=== PATIENT | male | born 1955 | race Caucasian/White ===

== ENCOUNTER 2017-03-05 22:07 | Emergency (ER) | payer OTHER ==
[2017-03-05 22:18] VITALS: TEMP 98.2
--- NOTE | 2017-03-05 22:42 | ED ---
General Adult HPI - General Chief complaint: Recheck/Abnormal Lab/Rx Stated complaint: B/P Issues Time Seen by Provider: 03/05/17 22:15 Source: patient, family, RN notes reviewed Mode of arrival: ambulatory Limitations: no limitations - History of Present Illness Initial comments: This is a 62-year-old male who presents to the emergency department because his blood pressure was elevated initially at 162 systolic and then it went up to 180 -10 minutes later. Patient states he was slightly lightheaded so he decided to come to the emergency department. Patient does not take any medication for his blood pressures. Because he takes 20-30 [id number] organic medications. Patient states he stopped all of them earlier today on the advice of his chiropractor. Patient denies any chest pain difficulty breathing shortness of breath per patient denies any headache patient denies numbness weakness. Patient denies any palpitations. Patient denies nausea vomiting diarrhea per patient denies abdominal pain. Patient states been under quite a bit of stress at home and at work and that could contribute to some of his elevated blood pressure. - Related Data Home Medications Medication Instructions Recorded Confirmed No Known Home Medications [No 03/05/17 03/05/17 Known Home Medications] Allergies Allergy/AdvReac Type Severity Reaction Status Date / Time No Known Allergies Allergy Verified 03/05/17 22:18 Review of Systems ROS Statement: Those systems with pertinent positive or pertinent negative responses have been documented in the HPI. ROS Other: All systems not noted in ROS Statement are negative. Past Medical History Past Medical History: No Reported History History of Any Multi-Drug Resistant Organisms: None Reported Past Surgical History: No Surgical Hx Reported Past Psychological History: No Psychological Hx Reported Smoking Status: Never smoker Past Alcohol Use History: Rare Past Drug Use History: None Reported General Exam - General Exam Comments Initial Comments: GENERAL: Patient is well-developed and well-nourished. Patient is nontoxic and well- hydrated and is in no acute distress. ENT: Neck is soft and supple. No significant lymphadenopathy is noted. Oropharynx is clear. Moist mucous membranes. Neck has full range of motion without eliciting any pain. EYES: The sclera were anicteric and conjunctiva were pink and moist. Extraocular movements were intact and pupils were equal round and reactive to light. Eyelids were unremarkable. PULMONARY: Unlabored respirations. Good breath sounds bilaterally. No audible rales rhonchi or wheezing was noted. CARDIOVASCULAR: There is a regular rate and rhythm without any murmurs gallops or rubs. ABDOMEN: Soft and nontender with normal bowel sounds. No palpable organomegaly was noted. There is no palpable pulsatile mass. SKIN: Skin is clear with no lesions or rashes and otherwise unremarkable. NEUROLOGIC: Patient is alert and oriented x3. Cranial nerves II through XII are grossly intact. Motor and sensory are also intact. Normal speech, volume and content. Symmetrical smile. MUSCULOSKELETAL: Normal extremities with adequate strength and full range of motion. No lower extremity swelling or edema. No calf tenderness. LYMPHATICS: No significant lymphadenopathy is noted PSYCHIATRIC: Normal psychiatric evaluation. Limitations: no limitations Course Vital Signs 03/05/17 22:15 Temperature 98.2 F Pulse Rate 105 H Respiratory 20 Rate Blood Pressure 137/91 O2 Sat by Pulse 99 Oximetry Medical Decision Making - Medical Decision Making EKG shows normal sinus rhythm at 90 bpm MA interval 146 dresses 98 QT interval 344 Q-T C is 439 per patient's EKG shows no ST segment elevation or depression or T wave abnormalities are noted. Patient was asymptomatic throughout his ED course. Patient's blood pressure was never above 150 systolic. - Lab Data Result diagrams: 03/05/17 23:15 03/05/17 23:15 Lab Results 03/05/17 03/05/17 Range/Units 23:15 23:15 WBC 5.7 (3.8-10.6) k/uL RBC 4.98 (4.30-5.90) m/uL Hgb 15.2 (13.0-17.5) gm/dL Hct 43.0 (39.0-53.0) % MCV 86.3 (80.0-100.0) fL MCH 30.4 (25.0-35.0) pg MCHC 35.3 (31.0-37.0) g/dL RDW 12.3 (11.5-15.5) % Plt Count 260 (150-450) k/uL Neutrophils % 65 % Lymphocytes % 22 % Monocytes % 8 % Eosinophils % 2 % Basophils % 1 % Neutrophils # 3.7 (1.3-7.7) k/uL Lymphocytes # 1.3 (1.0-4.8) k/uL Monocytes # 0.4 (0-1.0) k/uL Eosinophils # 0.1 (0-0.7) k/uL Basophils # 0.0 (0-0.2) k/uL Sodium 136 L (137-145) mmol/L Potassium 4.1 (3.5-5.1) mmol/L Chloride 100 (98-107) mmol/L Carbon Dioxide 26 (22-30) mmol/L Anion Gap 10 mmol/L BUN 15 (9-20) mg/dL Creatinine 0.60 L (0.66-1.25) mg/dL Est GFR (MDRD) Af Amer >60 (>60 ml/min/1.73 sqM) Est GFR (MDRD) Non-Af >60 (>60 ml/min/1.73 sqM) Glucose 274 H (74-99) mg/dL Calcium 9.5 (8.4-10.2) mg/dL Magnesium 1.7 (1.6-2.3) mg/dL Total Bilirubin 0.5 (0.2-1.3) mg/dL AST 23 (17-59) U/L ALT 42 (21-72) U/L Alkaline Phosphatase 55 (38-126) U/L Total Protein 6.5 (6.3-8.2) g/dL Albumin 3.9 (3.5-5.0) g/dL Disposition Clinical Impression: Hyperglycemia Disposition: HOME SELF-CARE Condition: Good Instructions: Hypertension (ED), Type 2 Diabetes in Adults (ED) Additional Instructions: Patient needs to follow up with the primary medical care doctor switched to be appropriately worked up for hypertension and diabetes. Patient is aware of this. Referrals: None,Stated [Primary Care Provider] - 1-2 days
[2017-03-05 23:29] LABS: Basophils % (A) 1 %; CH 31.2; CHCM 36.3; Eosinophils # (A) 0.1 k/uL (0-0.7); Eosinophils % (A) 2 %; HDW 2.73; HGB 15.2 gm/dL (13.0-17.5); Luc # (Auto) 0.12; Luc % (Auto) 2; Lymphocytes # (A) 1.3 k/uL (1.0-4.8); Lymphocytes % (A) 22 %; MCH 30.4 pg (25.0-35.0); MCHC 35.3 g/dL (31.0-37.0); MCV 86.3 fL (80.0-100.0); Mean Platelet Volume 7.3; Monocytes # (A) 0.4 k/uL (0-1.0); Monocytes % (A) 8 %; Neutrophils # (A) 3.7 k/uL (1.3-7.7); Neutrophils % (A) 65 %; RBC 4.98 m/uL (4.30-5.90); RDW 12.3 % (11.5-15.5); WBC 5.7 k/uL (3.8-10.6); WBC (Perox) 5.36
[2017-03-05 23:44] LABS: ALT 42 U/L (21-72); AST 23 U/L (17-59); Alkaline Phosphatase 55 U/L (38-126); Anion Gap 10 mmol/L; Blood Urea Nitrogen 15 mg/dL (9-20); Calcium 9.5 mg/dL (8.4-10.2); Carbon Dioxide 26 mmol/L (22-30); Chloride 100 mmol/L (98-107); Glucose 274 mg/dL (74-99); Magnesium 1.7 mg/dL (1.6-2.3); Non-African American GFR(MDRD) >60 (>60 ml/min/1.73 sqM); Potassium 4.1 mmol/L (3.5-5.1); Sodium 136 mmol/L (137-145); Total Bilirubin 0.5 mg/dL (0.2-1.3); Total Protein 6.5 g/dL (6.3-8.2)
[2017-03-06 00:06] VITALS: BP 155/101; PULSE 101; RESP 18
== END 2017-03-06 00:05 | disposition home or self-care (01) ==
LOC: EC 22:07
DX: R73.9 Hyperglycemia, unspecified (principal); R03.0 Elevated blood-pressure reading, without diagnosis of hypertension
CPT/HCPCS: 36415; 80053; 83735; 85025; 93005; 99283

== ENCOUNTER 2017-12-30 20:30 | Observation (INO) | payer OTHER ==
[2017-12-30] MEDS ORDERED: PANTOPRAZOLE 40 MG/10 ML VIAL IVP STA (21:01)
[2017-12-30] MEDS ORDERED: SODIUM CHLORIDE 0.9% 1,000 ML IV ONE (21:03)
[2017-12-30 21:17] LABS: Basophils % (A) 0 %; Eosinophils # (A) 0.1 k/uL (0-0.7); Eosinophils % (A) 1 %; HCT 40.9 % (39.0-53.0); HGB 13.7 gm/dL (13.0-17.5); Lymphocytes # (A) 0.9 k/uL (1.0-4.8); Lymphocytes % (A) 6 %; MCH 29.4 pg (25.0-35.0); MCHC 33.4 g/dL (31.0-37.0); MCV 87.9 fL (80.0-100.0); Mean Platelet Volume 7.2; Monocytes # (A) 0.8 k/uL (0-1.0); Monocytes % (A) 5 %; Neutrophils # (A) 14.7 k/uL (1.3-7.7); Neutrophils % (A) 89 %; Platelet Count 381 k/uL (150-450); RBC 4.65 m/uL (4.30-5.90); RDW 12.3 % (11.5-15.5); WBC 16.5 k/uL (3.8-10.6)
[2017-12-30 21:22] LABS: ALT 30 U/L (21-72); AST 21 U/L (17-59); Albumin 3.7 g/dL (3.5-5.0); Alkaline Phosphatase 55 U/L (38-126); Anion Gap 17 mmol/L; Blood Urea Nitrogen 31 mg/dL (9-20); Calcium 10.2 mg/dL (8.4-10.2); Carbon Dioxide 24 mmol/L (22-30); Chloride 92 mmol/L (98-107); Glucose 344 mg/dL (74-99); Potassium 4.6 mmol/L (3.5-5.1); Sodium 133 mmol/L (137-145); Total Bilirubin 0.5 mg/dL (0.2-1.3)
[2017-12-30 21:30] LABS: Creatine Kinase 192 U/L (55-170)
--- NOTE | 2017-12-30 21:36 | ED ---
GI Bleed HPI - General Chief complaint: GI Bleed Stated complaint: Rectal Bleeding Time Seen by Provider: 12/30/17 20:48 Source: patient Mode of arrival: wheelchair Limitations: no limitations - History of Present Illness Initial comments: This 62 years old male few days ago at that point he came in with the infection in his foot and I noticed that his sugar was too high up put him in the hospital his sugar was greater than 400 today he returns to the ER with this blood pressure being less than 70 systolic he was quite diaphoretic and he stated he had several bloody stools today during his stay in the hospital this time he was put on some antihypertensive agents as well as as well as some antibiotics for quite diaphoretic quite weak on arrival. He denies any headaches no neck stiffness no chest pain or shortness of breath no abdominal pain had bloody stool had a 60 from today he still nauseous no symptoms of TIA or CVA - Related Data Home Medications Medication Instructions Recorded Confirmed Aspirin 81 mg PO DAILY 12/25/17 12/30/17 Ascorbic Acid [Vitamin C] 6,000 mg PO DAILY 12/30/17 12/30/17 Fish Oil/Dha/Epa [Fish Oil 1,200 1 cap PO BID 12/30/17 12/30/17 mg Fish Oil] Lisinopril-Hctz 10-12.5 mg 1 tab PO BID 12/30/17 12/30/17 [Zestoretic 10-12.5] Loperamide [Imodium] 2 mg PO QID PRN 12/30/17 12/30/17 Saw [place] 450 Mg 900 mg PO BID 12/30/17 12/30/17 Previous Rx's Medication Instructions Recorded Amoxic-Pot Clav 875-125Mg 1 tab PO Q12HR #20 tablet 12/29/17 [Augmentin 875-125] Atorvastatin Calcium [Lipitor] 20 mg PO DAILY #30 tab 12/29/17 metFORMIN HCL [Glucophage] 1,000 mg PO AC-BID #60 tab 12/29/17 Allergies Allergy/AdvReac Type Severity Reaction Status Date / Time No Known Allergies Allergy Verified 12/30/17 21:37 Review of Systems ROS Statement: Those systems with pertinent positive or pertinent negative responses have been documented in the HPI. ROS Other: All systems not noted in ROS Statement are negative. Past Medical History Past Medical History: No Reported History, Diabetes Mellitus, Hypertension Additional Past Medical History / Comment(s): 2017 presented in ER with high blood pressure, no medications needed History of Any Multi-Drug Resistant Organisms: None Reported Past Surgical History: No Surgical Hx Reported Past Psychological History: No Psychological Hx Reported Smoking Status: Never smoker Past Alcohol Use History: Rare Past Drug Use History: None Reported - Past Family History Mother Family Medical History: Cancer, Diabetes Mellitus, Hypertension, Liver Disease, Renal Disease Additional Family Medical History / Comment(s): breast cancer history Father Family Medical History: Cancer, Chest Pain / Angina, Hypertension, Myocardial Infarction (SC), Osteoarthritis (OA) General Exam - General Exam Comments Initial Comments: General: The patient is awake and alert, in moderate distress looks quite pale noticed some diaphoresis as well but GCS is 15 Skin: Skin is warm and dry and no rashes or lesions are noted. Eye: Pupils are equal, round and reactive to light, extra-ocular movements are intact; there is normal conjunctiva bilaterally. Ears, nose, mouth and throat: There are moist mucous membranes and no oral lesions. Neck: The neck is supple, there is no tenderness or JVD. Cardiovascular: There is a regular rate and rhythm. No murmur, rub or gallop is appreciated. Respiratory: To auscultation bilateral, or exchanges decrease in the right base Gastrointestinal: Soft, non-distended, non-tender abdomen without masses or organomegaly noted. There is no rebound or guarding present. Bowel sounds are unremarkable. Rectal exam showed hemorrhoids and now dark red blood per rectal exam Back: There is no tenderness to palpation in the midline. There is no obvious deformity. Musculoskeletal: Normal ROM, no tenderness, There is no pedal edema. There is no calf tenderness or swelling. No cords were appreciated. Neurological: CN II-XII intact, Cranial nerves III through XII are intact. There are no obvious motor or sensory deficits. Coordination appears grossly intact. Speech is normal. Psychiatric: Cooperative, appropriate mood & affect, normal judgment. Limitations: no limitations Course Vital Signs 12/30/17 12/30/17 12/30/17 20:34 21:05 21:29 Temperature 97.6 F Pulse Rate 105 H 99 97 Respiratory 20 17 18 Rate Blood Pressure 99/63 97/57 O2 Sat by Pulse 100 99 99 Oximetry 12/30/17 12/30/17 22:15 22:47 Temperature Pulse Rate 98 100 Respiratory 18 18 Rate Blood Pressure 87/61 107/66 O2 Sat by Pulse 98 99 Oximetry EKG is sinus tachycardia ventricular rate is 101 NM interval is 142 QRS duration is 94 QT/QTc is 342/443 review of this EKG does not reveal any ST elevation or ST depression noticed some incomplete right bundle branch block Patient be admitted to Dr. Sweeney service, labs were reviewed and discussed with the patient white count is 16.5 lactate is 2.1 CMP is negative troponin is negative occult blood is positive and lactate is 2.5 - Reevaluation(s) Reevaluation #1: Patient presented with the GI bleed his hemoglobin is quite stable other worrisome things or that his blood pressure was quite low triage nurse told me the blood pressure was less than 70 when he presented to the ER though it bounced back with the IV fluids and he is not on any blood thinners as such and also I don't have any C. difficile back into the worrisome thing is his white count is 17 with a left shift I would like to put him back in the hospital for serial hemoglobin check (1) chronic antibiotic we did bleed we did arrange blood cultures I'm suspecting early sepsis. He be admitted to Dr. Pederson's service 12/30/17 22:23 12/30/17 22:55 Blood pressure dropped below 100 systolic in spite of 1 L of fluids we will start him on empiric antibiotics and maintenance fluids he be admitted, patient agrees with that plan Medical Decision Making - Lab Data Result diagrams: 12/30/17 20:57 12/30/17 20:57 Lab Results 12/30/17 12/30/17 12/30/17 Range/Units 20:57 20:57 20:57 WBC 16.5 H (3.8-10.6) k/uL RBC 4.65 (4.30-5.90) m/uL Hgb 13.7 (13.0-17.5) gm/dL Hct 40.9 (39.0-53.0) % MCV 87.9 (80.0-100.0) fL MCH 29.4 (25.0-35.0) pg MCHC 33.4 (31.0-37.0) g/dL RDW 12.3 (11.5-15.5) % Plt Count 381 (150-450) k/uL Neutrophils % 89 % Lymphocytes % 6 % Monocytes % 5 % Eosinophils % 1 % Basophils % 0 % Neutrophils # 14.7 H (1.3-7.7) k/uL Lymphocytes # 0.9 L (1.0-4.8) k/uL Monocytes # 0.8 (0-1.0) k/uL Eosinophils # 0.1 (0-0.7) k/uL Basophils # 0.0 (0-0.2) k/uL APTT (22.0-30.0) sec Sodium 133 L (137-145) mmol/L Potassium 4.6 (3.5-5.1) mmol/L Chloride 92 L (98-107) mmol/L Carbon Dioxide 24 (22-30) mmol/L Anion Gap 17 mmol/L BUN 31 H (9-20) mg/dL Creatinine 1.20 (0.66-1.25) mg/dL Est GFR (MDRD) Af Amer >60 (>60 ml/min/1.73 sqM) Est GFR (MDRD) Non-Af >60 (>60 ml/min/1.73 sqM) Glucose 344 H (74-99) mg/dL Plasma Lactic Acid Abel (0.7-2.0) mmol/L Calcium 10.2 (8.4-10.2) mg/dL Total Bilirubin 0.5 (0.2-1.3) mg/dL AST 21 (17-59) U/L ALT 30 (21-72) U/L Alkaline Phosphatase 55 (38-126) U/L Total Creatine Kinase 192 H (55-170) U/L CK-MB (CK-2) 3.8 H* (0.0-2.4) ng/mL CK-MB (CK-2) Rel Index 2.0 Troponin I <0.012 (0.000-0.034) ng/mL Total Protein 6.0 L (6.3-8.2) g/dL Albumin 3.7 (3.5-5.0) g/dL Stool Occult Blood (Negative) C. difficile (EIA) Intrp (Negative) Blood Type Blood Type Confirm Blood Type Recheck Antibody Screen Spec Expiration Date 12/30/17 12/30/17 12/30/17 Range/Units 20:57 20:57 20:57 WBC (3.8-10.6) k/uL RBC (4.30-5.90) m/uL Hgb (13.0-17.5) gm/dL Hct (39.0-53.0) % MCV (80.0-100.0) fL MCH (25.0-35.0) pg MCHC (31.0-37.0) g/dL RDW (11.5-15.5) % Plt Count (150-450) k/uL Neutrophils % % Lymphocytes % % Monocytes % % Eosinophils % % Basophils % % Neutrophils # (1.3-7.7) k/uL Lymphocytes # (1.0-4.8) k/uL Monocytes # (0-1.0) k/uL Eosinophils # (0-0.7) k/uL Basophils # (0-0.2) k/uL APTT 21.9 L (22.0-30.0) sec Sodium (137-145) mmol/L Potassium (3.5-5.1) mmol/L Chloride (98-107) mmol/L Carbon Dioxide (22-30) mmol/L Anion Gap mmol/L BUN (9-20) mg/dL Creatinine (0.66-1.25) mg/dL Est GFR (MDRD) Af Amer (>60 ml/min/1.73 sqM) Est GFR (MDRD) Non-Af (>60 ml/min/1.73 sqM) Glucose (74-99) mg/dL Plasma Lactic Acid Abel (0.7-2.0) mmol/L Calcium (8.4-10.2) mg/dL Total Bilirubin (0.2-1.3) mg/dL AST (17-59) U/L ALT (21-72) U/L Alkaline Phosphatase (38-126) U/L Total Creatine Kinase (55-170) U/L CK-MB (CK-2) (0.0-2.4) ng/mL CK-MB (CK-2) Rel Index Troponin I (0.000-0.034) ng/mL Total Protein (6.3-8.2) g/dL Albumin (3.5-5.0) g/dL Stool Occult Blood Positive (Negative) C. difficile (EIA) Intrp (Negative) Blood Type A Positive Blood Type Confirm Blood Type Recheck CABO Indicated Antibody Screen NEGATIVE Spec Expiration Date 01/02/2018 - 235612/30/17 12/30/17 12/30/17 Range/Units 21:08 21:08 21:49 WBC (3.8-10.6) k/uL RBC (4.30-5.90) m/uL Hgb (13.0-17.5) gm/dL Hct (39.0-53.0) % MCV (80.0-100.0) fL MCH (25.0-35.0) pg MCHC (31.0-37.0) g/dL RDW (11.5-15.5) % Plt Count (150-450) k/uL Neutrophils % % Lymphocytes % % Monocytes % % Eosinophils % % Basophils % % Neutrophils # (1.3-7.7) k/uL Lymphocytes # (1.0-4.8) k/uL Monocytes # (0-1.0) k/uL Eosinophils # (0-0.7) k/uL Basophils # (0-0.2) k/uL APTT (22.0-30.0) sec Sodium (137-145) mmol/L Potassium (3.5-5.1) mmol/L Chloride (98-107) mmol/L Carbon Dioxide (22-30) mmol/L Anion Gap mmol/L BUN (9-20) mg/dL Creatinine (0.66-1.25) mg/dL Est GFR (MDRD) Af Amer (>60 ml/min/1.73 sqM) Est GFR (MDRD) Non-Af (>60 ml/min/1.73 sqM) Glucose (74-99) mg/dL Plasma Lactic Acid Abel 2.1 H* (0.7-2.0) mmol/L Calcium (8.4-10.2) mg/dL Total Bilirubin (0.2-1.3) mg/dL AST (17-59) U/L ALT (21-72) U/L Alkaline Phosphatase (38-126) U/L Total Creatine Kinase (55-170) U/L CK-MB (CK-2) (0.0-2.4) ng/mL CK-MB (CK-2) Rel Index Troponin I (0.000-0.034) ng/mL Total Protein (6.3-8.2) g/dL Albumin (3.5-5.0) g/dL Stool Occult Blood (Negative) C. difficile (EIA) Intrp Negative (Negative) Blood Type Blood Type Confirm A Positive Blood Type Recheck Antibody Screen Spec Expiration Date Disposition Clinical Impression: Hypotension, GI bleed Disposition: ADMITTED IP TO THIS [facility] Condition: Good Referrals: None,Stated [Primary Care Provider] - 1-2 days
[2017-12-30 21:43] LABS: Troponin I <0.012 ng/mL (0.000-0.034)
[2017-12-30 21:48] LABS: Creatine Kinase MB 3.8 ng/mL (0.0-2.4)
[2017-12-30] MEDS: SODIUM CHLORIDE 0.9% 1,000 ML IV SCH (22:23)
[2017-12-30] MEDS ORDERED: NALOXONE 0.4 MG/ML 1 ML VIAL IV PRN (22:56)
[2017-12-30] MEDS ORDERED: LOPERAMIDE 2 MG CAP PO PRN (23:14)
[2017-12-30] MEDS ORDERED: PIPERACILLIN-TAZOBACTAM 3.375 GM in DEXTROSE/WATER 1 50ML.BAG IVPB STA (23:15)
[2017-12-31 01:00] VITALS: BMI 24.7
[2017-12-31 06:20] LABS: Glucose,Whole Blood 235 mg/dL (75-99)
[2017-12-31 06:59] LABS: Basophils % (A) 0 %; Eosinophils # (A) 0.1 k/uL (0-0.7); Eosinophils % (A) 1 %; HCT 34.1 % (39.0-53.0); Lymphocytes # (A) 1.3 k/uL (1.0-4.8); Lymphocytes % (A) 18 %; MCH 29.6 pg (25.0-35.0); MCHC 32.4 g/dL (31.0-37.0); MCV 91.4 fL (80.0-100.0); Mean Platelet Volume 7.2; Monocytes # (A) 0.6 k/uL (0-1.0); Monocytes % (A) 8 %; Neutrophils # (A) 4.9 k/uL (1.3-7.7); Neutrophils % (A) 71 %; Platelet Count 274 k/uL (150-450); RBC 3.73 m/uL (4.30-5.90); RDW 12.3 % (11.5-15.5); WBC 6.9 k/uL (3.8-10.6)
[2017-12-31 07:31] LABS: ALT 31 U/L (21-72); AST 16 U/L (17-59); Alkaline Phosphatase 47 U/L (38-126); Anion Gap 8 mmol/L; Blood Urea Nitrogen 32 mg/dL (9-20); Calcium 9.3 mg/dL (8.4-10.2); Carbon Dioxide 29 mmol/L (22-30); Chloride 98 mmol/L (98-107); Glucose 236 mg/dL (74-99); Potassium 4.3 mmol/L (3.5-5.1); Sodium 135 mmol/L (137-145); Total Bilirubin 0.7 mg/dL (0.2-1.3); Total Protein 5.2 g/dL (6.3-8.2)
[2017-12-31] MEDS ORDERED: PIPERACILLIN-TAZOBACTAM 3.375 GM in DEXTROSE/WATER 1 50ML.BAG IVPB SCH (08:00)
[2017-12-31] MEDS ORDERED: SAW PALMETTO PO SCH (09:00)
[2017-12-31] MEDS: SODIUM CHLORIDE 0.9% 1,000 ML IV SCH ×2 (09:09→18:38)
--- NOTE | 2017-12-31 10:35 | CONS ---
CONSULTATION DATE OF SERVICE: 12/31/2017 REASON FOR CONSULTATION: Bloody diarrhea. HISTORY OF PRESENT ILLNESS: The patient is a 62-year-old pleasant white male who was discharged from the hospital 2 days ago, and the first time was admitted with new onset diabetes and diabetic foot infection. He was sent home on Augmentin. While he was in the hospital, he started having diarrhea with bowel movements anywhere from 4 to 5 a day which are loose in consistency. The diarrhea continued to persist. He started Imodium on an outpatient basis, but yesterday afternoon around 12 noon, he started noticing blood in the stool. He had at least 10 episodes of loose watery bowel movements with dark blood and as it continued to persist, became very concerned, came into the emergency room and subsequently admitted to the hospital for further evaluation. Since being in the hospital, he had 3 bowel movements; one of it had blood, the other two had no more bleeding. He denies any abdominal pain, reports no fever, chills, night sweats. Never had these symptoms in the past. PAST MEDICAL HISTORY: Newly diagnosed diabetes mellitus, diabetic foot infection, hypertension. MEDICATIONS: At home, aspirin, vitamin C, fish oil, Zestoretic, Imodium, saw [place]met[place], Augmentin, Lipitor, and Glucophage. ALLERGIES: None. PAST SURGICAL HISTORY: None. SOCIAL HISTORY: No smoking. No alcohol use. FAMILY HISTORY: Mother has diabetes, hypertension. Father has coronary artery disease and hypertension. REVIEW OF SYSTEMS: CARDIOPULMONARY: No chest pain, shortness of breath. GENITOURINARY: No dysuria, hematuria. MUSCULOSKELETAL: Unremarkable. SKIN: Unremarkable. PSYCHIATRIC: Unremarkable. NEUROLOGY: Unremarkable. ENT: Vision unremarkable. CONSTITUTIONAL: No recent weight loss. No fever, chills, night sweats. ENDOCRINE: New onset diabetes. HEMATOLOGY: Unremarkable. PHYSICAL EXAMINATION: He appears comfortable, in no apparent distress. VITAL SIGNS: Stable. Blood pressure is 103/64, pulse rate 107, temperature 97.3. HEENT EXAMINATION: Unremarkable, conjunctivae are pink, sclerae nonicteric. Oral cavity no lesions. NECK: No JVD or lymph node enlargement. Chest was clear to auscultation. HEART: Regular rate and rhythm. ABDOMEN: Soft, nontender, nondistended. Bowel sounds are positive. No organomegaly. EXTREMITIES: No pedal edema. SKIN: No rashes. NEURO: Alert and oriented x3. No focal deficits. LABS: At the time of admission to the hospital, WBC 6.9, hemoglobin 11, platelets 12.3, hemoglobin yesterday was 13.7. BUN is 32, creatinine 1.20, sodium 135, potassium 4.3, chloride 98, CO2 is 29. AST, ALT, bilirubin and alk phos are within normal limits. IMPRESSION: This is a patient who was recently diagnosed with diabetes and diabetic foot infection about a week ago and patient was admitted to hospital and was sent home on Augmentin and while in the hospital, started having some diarrhea, but was having about 3 to 4 loose bowel movements daily. Following discharge from the hospital, he continued to have persistent diarrhea and took Imodium on an outpatient basis, but then he noticed dark colored blood in the stool that started yesterday. He had almost 10 bowel movements yesterday, came in to the emergency room and subsequently admitted to the hospital for acute bloody diarrhea. Stool for C. diff toxin was reported as negative. This morning he is feeling better, had 2 loose bowel movements, but no blood in the stool. No prior history of colonoscopy in the past. Most likely we are dealing with infectious colitis, presently with diarrhea secondary due to Augmentin. RECOMMENDATIONS: 1. Obtain stool studies. 2. Start him on clear liquid diet. 3. Hold off antibiotics if possible, since the diabetic foot ulcer has completely healed. 4. We will consider endoscopic intervention only if he continues to have persistent bloody diarrhea. Thank you for this consultation. Will follow the patient closely during his hospital stay. CHEVY / MARTHA: [id number] /
[2017-12-31 10:36] LABS: Glucose,Whole Blood 219 mg/dL (75-99)
[2017-12-31] MEDS: metFORMIN 500 MG TAB PO SCH ×2 (10:52→17:58)
[2017-12-31] MEDS: ASCORBIC ACID 500 MG TAB PO SCH (10:53)
[2017-12-31] MEDS: ATORVASTATIN 20 MG TAB PO SCH (10:53)
[2017-12-31] MEDS: ASPIRIN 81 MG PO SCH (10:53)
[2017-12-31 16:41] LABS: Glucose,Whole Blood 206 mg/dL (75-99)
[2017-12-31] MEDS: DHA PO SCH ×2 (17:59→20:37)
[2017-12-31] MEDS: FISH OIL PO SCH ×2 (17:59→20:37)
[2017-12-31] MEDS: EPA PO SCH ×2 (17:59→20:37)
--- NOTE | 2017-12-31 18:38 | HP ---
HISTORY AND PHYSICAL DATE OF ADMISSION: 12/31/2017. PRESENTING COMPLAINT: Diarrhea and blood in the stool. HISTORY OF PRESENTING COMPLAINT: This is a pleasant 62-year-old patient who was in the hospital from to 12/26/2017 and discharged 12/29/2017. The patient then was initially admitted with acute left foot wound secondary to diabetes with a new diagnosis of diabetes mellitus type 2 and hypertension, hyperlipidemia. The patient was discharged on Augmentin, seen by Dr. Encinas and also was put on metformin. The patient did well, but the patient said at home he said at home he noticed that suddenly he had started developing diarrhea 4 or 5 times. There was no abdominal pain. No nausea, vomiting. No fever. Also started noticing blood in the same; hence, he was admitted. REVIEW OF SYSTEMS: CONSTITUTIONAL: Tired. HEENT: None. RESPIRATORY: None. CARDIOVASCULAR: None. GASTROINTESTINAL: None. GENITOURINARY: None. DERMATOLOGICAL: The wounds of the left foot. Toe are actually healed rather well. LYMPHATICS: None. PSYCHIATRY: None. NEUROLOGICAL: Numbness, tingling in the feet. PAST MEDICAL HISTORY: New diagnosis of diabetes mellitus type 2, hypertension, hyperlipidemia, peripheral neuropathy. PAST SURGICAL HISTORY: None. SOCIAL HISTORY: No smoking. Alcohol rarely. Denies any recreational drugs. Lives with a friend called Anum who works. 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 FAMILY HISTORY: Diabetes, hypertension, liver disease, breast cancer. HOME MEDICATIONS: 1. Aspirin 81 mg a day. 2. Augmentin 875 p.o. q.12. 3. Lipitor 20 mg a day. 4. Lisinopril/Zestoretic 09/01.5, 1 tablet p.o. b.i.d. 5. Metformin 1000 mg p.o. b.i.d. ALLERGIES: None. EXAMINATION: Temperature 98.3, pulse 104, respirations 20, blood pressure 98/57, pulse ox 98% on room air. GENERAL APPEARANCE: Average built, sitting up, tired-appearing. EYES: Pupils equal. Conjunctivae normal. HEENT: External nose and ears normal. Oral cavity normal. NECK: JVD not raised. Mass not palpable. RESPIRATORY: Effort normal. LUNGS: Fair air entry. CARDIOVASCULAR: First and second sounds normal. No edema. ABDOMEN: Soft, nontender. Liver and spleen not palpable. LYMPHATIC: No lymph nodes palpable in neck or axillae. PSYCHIATRY: Alert and oriented x3. Mood and affect normal. NEUROLOGICAL: Pupils equal. Cranial nerves grossly intact. DERMATOLOGICAL: There is a wound on the left foot toe tip that is actually rather healing well. INVESTIGATIONS: White count 6.9, hemoglobin 11. Potassium 4.3, BUN 32, glucose 236, 235. ASSESSMENT: 1. Acute diarrhea with blood in the stool. The patient may have resultant colitis, though the patient has got no abdominal pain and some of the diarrhea could be from antibiotic-associated diarrhea. 2. Diabetes mellitus type 2 on oral hypoglycemic. 3. Hyperlipidemia. 4. Essential hypertension, history of. 5. Relative hypotension from diarrhea fluid loss. PLAN: At this point, patient's Augmentin will be held. Will continue with local Medihoney dressing. Will also hold off patient's Zestoretic. Will give patient IV fluids. Consultation to GI Dr. Kearney was done. The patient has been put on clear liquids. Care was discussed with the patient. MMODL / IJN: [id number] /
[2017-12-31 20:56] LABS: Glucose,Whole Blood 195 mg/dL (75-99)
--- NOTE | 2017-12-31 23:29 | P.CONS ---
History of Present Illness - Reason for Consult Consult date: 12/31/17 - Chief Complaint GI bleed - History of Present Illness This is a 62-year-old male was recently hospitalized after he was trimming the third and fourth toes on his left foot and he was using cuticle scissors to cut a hard callus at the end of the toes. He states it was a little bit of bleeding at the site at that time. He applied black drawing salve and applying Band-Aids. He has done this before and has not had any problems at this time his left foot started to swell. He also applied a salve on calluses on the second and third toes and they ended up splitting wide open. He states he has not had any pain with this, no fever or chills. He states he power walks 2 miles every day recently he only exercised 4 times and he still did not have any pain to his foot. Patient also applies Nonyx Nail gel to his toes to treat fungus and has been doing this since June 2016. He states since he started using that he has felt a tightness in the bottom of his foot. Patient takes multiple supplements and vitamins and follows with the chiropractor. Patient came into [facility] emergency center was found to have a normal white count of blood sugar was 404 and hemoglobin A1c 13.3. Patient was newly diagnosed with diabetes. Foot x-ray showed no acute bony abnormality with degenerative hypertrophic changes. Left leg was negative for DVT. MRI did not reveal osteomyelitis and he was discharged on oral antibiotics. Just before discharge he developed diarrhea which responded to imodium. Since arriving home continued with some diarrhea but on the day around his visit to the ER he had at least 10 high volme loose stools with some blood becoming evident and became dizzy and lightheaded and as noted presented to the ER. With hydration feels much better but still some blood in stool today. Denies fever, chills or abdominal pain. the toe ulcers are improving and blood glucose is improving. Review of Systems Constitutional: Denies chills, Denies fatigue, Denies fever, Denies weakness Eyes: denies blurred vision, denies pain Ears, nose, mouth and throat: Denies headache, Denies sore throat Cardiovascular: Reports leg edema, Denies chest pain, Denies decreased exercise tolerance, Denies dyspnea on exertion, Denies lightheadedness, Denies shortness of breath, Denies syncope Respiratory: Denies cough, Denies cough with sputum, Denies dyspnea, Denies excessive sputum, Denies hemoptysis, Denies wheezing Gastrointestinal: as per HPI Genitourinary: Denies dysuria Musculoskeletal: Denies myalgias Integumentary: Reports wounds, Denies pruritus, Denies rash Neurological: Denies numbness, Denies weakness Psychiatric: Denies anxiety, Denies depression Endocrine: Denies fatigue, Denies weight change Past Medical History Past Medical History: No Reported History, Diabetes Mellitus, Hypertension Additional Past Medical History / Comment(s): 2017 presented in ER with high blood pressure, no medications needed History of Any Multi-Drug Resistant Organisms: None Reported Past Surgical History: No Surgical Hx Reported Past Psychological History: No Psychological Hx Reported Smoking Status: Never smoker Past Alcohol Use History: None Reported, Rare Additional Past Alcohol Use History / Comment(s): is a lifelong nonsmoker. He denies any marijuana or street drug use. He drinks alcohol rarely. He lives in his home and her friend lives with him and there are 3 cats in the home. 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 His job requires sitting for long periods of time. Past Drug Use History: None Reported - Past Family History Mother Family Medical History: Cancer, Diabetes Mellitus, Hypertension, Liver Disease, Renal Disease Additional Family Medical History / Comment(s): breast cancer history Father Family Medical History: Cancer, Chest Pain / Angina, Hypertension, Myocardial Infarction (MA), Osteoarthritis (OA) Medications and Allergies Home Medications and Allergies Comment(s): Current Medications Ascorbic Acid (Vitamin C) 6,000 mg PO DAILY [facility] Last Admin: 12/31/17 10:53 Dose: 6,000 mg Aspirin (Aspirin) 81 mg PO DAILY [facility] Last Admin: 12/31/17 10:53 Dose: 81 mg Atorvastatin Calcium (Lipitor) 20 mg PO DAILY [facility] Last Admin: 12/31/17 10:53 Dose: 20 mg Sodium Chloride (Saline 0.9%) 1,000 mls @ 100 mls/hr IV .Q10H [facility] Last Admin: 12/31/17 18:38 Dose: 100 mls/hr Loperamide HCl (Imodium) 2 mg PO QID PRN PRN Reason: Loose Stool Metformin HCl (Glucophage) 1,000 mg PO AC-BID [facility] Last Admin: 12/31/17 17:58 Dose: 1,000 mg Naloxone HCl (Narcan) 0.2 mg IV Q2M PRN PRN Reason: Opioid Reversal Patient's Own (Fish Oil/Dha/Epa [Fish Oil 1,200 Mg Fish Oil] 1 Cap) 1 cap PO BID [facility] Last Admin: 12/31/17 20:37 Dose: 1 cap Home Medications Medication Instructions Recorded Confirmed Type Aspirin 81 mg PO DAILY 12/25/17 12/30/17 History Amoxic-Pot Clav 875-125Mg 1 tab PO Q12HR #20 tablet 12/29/17 12/30/17 Rx [Augmentin 875-125] Atorvastatin Calcium [Lipitor] 20 mg PO DAILY #30 tab 12/29/17 12/30/17 Rx metFORMIN HCL [Glucophage] 1,000 mg PO AC-BID #60 tab 12/29/17 12/30/17 Rx Ascorbic Acid [Vitamin C] 6,000 mg PO DAILY 12/30/17 12/30/17 History Fish Oil/Dha/Epa [Fish Oil 1,200 1 cap PO BID 12/30/17 12/30/17 History mg Fish Oil] Lisinopril-Hctz 10-12.5 mg 1 tab PO BID 12/30/17 12/30/17 History [Zestoretic 10-12.5] Loperamide [Imodium] 2 mg PO QID PRN 12/30/17 12/30/17 History Saw [place] 450 Mg 900 mg PO BID 12/30/17 12/30/17 History Allergies Allergy/AdvReac Type Severity Reaction Status Date / Time No Known Allergies Allergy Verified 12/30/17 21:37 Physical Exam Vitals: Vital Signs Temp Pulse Pulse Resp BP BP Pulse Ox 12/31/17 19:52 97.4 F L 93 20 123/73 99 12/31/17 15:41 98.3 F 72 20 98/58 98 12/31/17 11:34 98.4 F 73 20 87/54 98 12/31/17 08:00 98.3 F 91 20 107/68 98 12/31/17 04:00 98.3 F 104 H 20 90/57 98 12/30/17 23:38 78 18 106/60 99 12/30/17 23:21 97.3 F L 107 H 18 103/64 99 Intake and Output 12/31/17 12/31/17 01/01/18 14:59 22:59 06:59 Intake Total 880 240 Balance 880 240 Intake: Oral 880 240 Other: Voiding Method Toilet Weight 81.3 kg Patient Weight 01/01/18 06:59 Weight 81.3 kg Gen: This is a 62-year-old male patient. Ambulating when observer arrived. HEENT: Head is atraumatic, normocephalic. Pupils equal, round. Sclerae is anicteric. Conjunctiva pink. Mucous members of the mouth are moist. No thrush noted. NECK: Supple. No JVD. No lymphadenopathy. No thyromegaly. LUNGS: A few expiratory wheezes. No intercostal retractions. HEART: Regular rate and rhythm. No murmur. ABDOMEN: Soft. Bowel sounds are present. No masses. No tenderness. EXTREMITIES: Mild edema to the left foot with erythema on the dorsal surface. There are ulcers to the dorsal surface of the third and fourth toes distally. No drainage. Onychomycosis noted the bilateral toes. Dorsalis pedis is +2 bilaterally. NEUROLOGICAL: Patient is awake, alert and oriented x3. Results CBC & Chem 7: 12/31/17 06:09 12/31/17 06:09 Labs: Abnormal Lab Results - Last 24 Hours (Table) 12/31/17 12/31/17 12/31/17 Range/Units 06:09 06:09 06:18 RBC 3.73 L (4.30-5.90) m/uL Hgb 11.0 L (13.0-17.5) gm/dL Hct 34.1 L (39.0-53.0) % Sodium 135 L (137-145) mmol/L BUN 32 H (9-20) mg/dL Glucose 236 H (74-99) mg/dL POC Glucose (mg/dL) 235 H (75-99) mg/dL AST 16 L (17-59) U/L Total Protein 5.2 L (6.3-8.2) g/dL Albumin 3.0 L (3.5-5.0) g/dL 12/31/17 12/31/17 12/31/17 Range/Units 10:33 16:39 20:53 RBC (4.30-5.90) m/uL Hgb (13.0-17.5) gm/dL Hct (39.0-53.0) % Sodium (137-145) mmol/L BUN (9-20) mg/dL Glucose (74-99) mg/dL POC Glucose (mg/dL) 219 H 206 H 195 H (75-99) mg/dL AST (17-59) U/L Total Protein (6.3-8.2) g/dL Albumin (3.5-5.0) g/dL Microbiology - Last 24 Hours (Table) 12/30/17 21:08 Stool Culture - Preliminary Stool Laboratory Results WBC 6.9 k/uL (3.8-10.6) 12/31/17 06:09 RBC 3.73 m/uL (4.30-5.90) L 12/31/17 06:09 Hgb 11.0 gm/dL (13.0-17.5) L 12/31/17 06:09 Hct 34.1 % (39.0-53.0) L 12/31/17 06:09 MCV 91.4 fL (80.0-100.0) 12/31/17 06:09 MCH 29.6 pg (25.0-35.0) 12/31/17 06:09 MCHC 32.4 g/dL (31.0-37.0) 12/31/17 06:09 RDW 12.3 % (11.5-15.5) 12/31/17 06:09 Plt Count 274 k/uL (150-450) 12/31/17 06:09 Neutrophils % 71 % 12/31/17 06:09 Lymphocytes % 18 % 12/31/17 06:09 Monocytes % 8 % 12/31/17 06:09 Eosinophils % 1 % 12/31/17 06:09 Basophils % 0 % 12/31/17 06:09 Neutrophils # 4.9 k/uL (1.3-7.7) 12/31/17 06:09 Lymphocytes # 1.3 k/uL (1.0-4.8) 12/31/17 06:09 Monocytes # 0.6 k/uL (0-1.0) 12/31/17 06:09 Eosinophils # 0.1 k/uL (0-0.7) 12/31/17 06:09 Basophils # 0.0 k/uL (0-0.2) 12/31/17 06:09 APTT 21.9 sec (22.0-30.0) L 12/30/17 20:57 Sodium 135 mmol/L (137-145) L 12/31/17 06:09 Potassium 4.3 mmol/L (3.5-5.1) 12/31/17 06:09 Chloride 98 mmol/L (98-107) 12/31/17 06:09 Carbon Dioxide 29 mmol/L (22-30) 12/31/17 06:09 Anion Gap 8 mmol/L 12/31/17 06:09 BUN 32 mg/dL (9-20) H 12/31/17 06:09 Creatinine 0.88 mg/dL (0.66-1.25) 12/31/17 06:09 Est GFR (MDRD) Af Amer >60 (>60 ml/min/1.73 sqM) 12/31/17 06:09 Est GFR (MDRD) Non-Af >60 (>60 ml/min/1.73 sqM) 12/31/17 06:09 Glucose 236 mg/dL (74-99) H 12/31/17 06:09 POC Glucose (mg/dL) 195 mg/dL (75-99) H 12/31/17 20:53 POC Glu Exceptional Children Teacher Yenifer Christopher 12/31/17 20:53 Lactic Ac Sepsis Rflx Y 12/30/17 22:08 Plasma Lactic Acid Abel 1.9 mmol/L (0.7-2.0) 12/31/17 01:16 Calcium 9.3 mg/dL (8.4-10.2) 12/31/17 06:09 Total Bilirubin 0.7 mg/dL (0.2-1.3) 12/31/17 06:09 AST 16 U/L (17-59) L 12/31/17 06:09 ALT 31 U/L (21-72) 12/31/17 06:09 Alkaline Phosphatase 47 U/L (38-126) 12/31/17 06:09 Total Creatine Kinase 192 U/L (55-170) H 12/30/17 20:57 CK-MB (CK-2) 3.8 ng/mL (0.0-2.4) H* 12/30/17 20:57 CK-MB (CK-2) Rel Index 2.0 12/30/17 20:57 Troponin I <0.012 ng/mL (0.000-0.034) 12/30/17 20:57 Total Protein 5.2 g/dL (6.3-8.2) L 12/31/17 06:09 Albumin 3.0 g/dL (3.5-5.0) L 12/31/17 06:09 Stool Occult Blood Positive (Negative) 12/30/17 20:57 C. difficile (EIA) Intrp Negative (Negative) 12/30/17 21:08 Blood Type A Positive 12/30/17 20:57 Blood Type Confirm A Positive 12/30/17 21:49 Blood Type Recheck CABO Indicated 12/30/17 20:57 Antibody Screen NEGATIVE 12/30/17 20:57 Spec Expiration Date 01/02/2018 - 4438 12/30/17 20:57 Microbiology 12/30/17 21:08 Stool Stool Culture - Preliminary Assessment and Plan (1) GI bleed Narrative/Plan: 62-year-old male presents to Hospital shortly after recent hospitalization he was had evidence new onset diabetes mellitus type 2 and developed ulcerations to second third and fourth toes of his left foot. He has taken cellulitis at that time. He has had marked improvement of his glucose control and was feeling considerably better until the sudden onset of diarrhea. Using some loose stools while hospitalized but Imodium was allowing good control of his diarrhea. However is noted on the day of admission he at least 10 stools. He felt dizzy and lightheaded and presented to the emergency center. Relative hypotension. Fluid resuscitation he is done considerably better. Spiriva [place]ur drop of his hemoglobin and he has been seen by gastroenterology. He is doing considerably better after hydration. Concern for antibiotic-induced colitis and C. diff was requested and is come back as negative. The likely is still having antibiotic associated diarrhea. His ulcerations are doing considerably better antibiotic therapy is discontinued. Some Questran can be added to his current regimen to try to improve his stool bulk and reduce any difficulties. Expansion be utilized for wiping the rectal area to improve irritation from his multiple loose stools. GI will follow and likely will plan outpatient endoscopy. Local wound care will continue for the diabetic foot ulcerations that are showing improvement with his glucose control improvement Current Visit: Yes Status: Acute Code(s): K92.2 - GASTROINTESTINAL HEMORRHAGE, UNSPECIFIED SNOMED Code(s): 11433919 (2) Hypotension Current Visit: Yes Status: Acute Code(s): I95.9 - HYPOTENSION, UNSPECIFIED SNOMED Code(s): 44566453 (3) New onset type 2 diabetes mellitus Current Visit: No Status: Acute Code(s): E11.9 - TYPE 2 DIABETES MELLITUS WITHOUT COMPLICATIONS SNOMED Code(s): 19304285 (4) Dehydration Current Visit: Yes Status: Acute Code(s): E86.0 - DEHYDRATION SNOMED Code( s): 73718351
[2018-01-01] MEDS: CHOLESTYRAMINE (WITH SUGAR) 4 GM PACKET PO SCH ×2 (00:39→11:47)
[2018-01-01 06:03] VITALS: RESP 18
[2018-01-01 06:48] LABS: Glucose,Whole Blood 221 mg/dL (75-99)
[2018-01-01 07:34] LABS: Basophils % (A) 1 %; Eosinophils # (A) 0.3 k/uL (0-0.7); Eosinophils % (A) 6 %; HCT 34.4 % (39.0-53.0); HGB 11.5 gm/dL (13.0-17.5); Lymphocytes # (A) 1.3 k/uL (1.0-4.8); Lymphocytes % (A) 27 %; MCH 29.6 pg (25.0-35.0); MCHC 33.3 g/dL (31.0-37.0); MCV 88.7 fL (80.0-100.0); Mean Platelet Volume 7.1; Monocytes # (A) 0.3 k/uL (0-1.0); Monocytes % (A) 7 %; Neutrophils # (A) 2.7 k/uL (1.3-7.7); Neutrophils % (A) 57 %; Platelet Count 324 k/uL (150-450); RBC 3.88 m/uL (4.30-5.90); RDW 12.3 % (11.5-15.5); WBC 4.7 k/uL (3.8-10.6)
[2018-01-01] MEDS: SODIUM CHLORIDE 0.9% 1,000 ML IV SCH ×2 (08:11→14:22)
[2018-01-01] MEDS: metFORMIN 500 MG TAB PO SCH (08:17)
[2018-01-01] MEDS: ASCORBIC ACID 500 MG TAB PO SCH (08:17)
[2018-01-01] MEDS: ATORVASTATIN 20 MG TAB PO SCH (08:17)
[2018-01-01] MEDS: DHA PO SCH (08:18)
[2018-01-01] MEDS: ASPIRIN 81 MG PO SCH (08:18)
[2018-01-01] MEDS: EPA PO SCH (08:18)
[2018-01-01] MEDS: FISH OIL PO SCH (08:18)
--- NOTE | 2018-01-01 09:35 | PN ---
PROGRESS NOTE DATE OF SERVICE: 01/01/2018. REQUESTING PHYSICIAN: Dr. Rodriguez. HISTORY: The patient is a 62-year-old pleasant white male with new onset diabetes mellitus and diabetic foot infection, was readmitted to the hospital yesterday where he presented with severe bloody diarrhea of 1 day duration. He was just discharged from the hospital the day before with antibiotics. He started having diarrhea for the last 4 to 5 days, 5 to 6 loose watery bowel movements, but the day before admission to the hospital they turned bloody. He had about 10 episodes and now it has resolved. Last bowel movement was at 11 a.m. yesterday. He denies any abdominal pain. No nausea or vomiting. No fevers, chills or night sweats. Stool for C diff toxin was negative. Cultures are still pending. PHYSICAL EXAMINATION: Appears comfortable no apparent distress. VITAL SIGNS: Stable. Blood pressure 122/66, pulse rate 89, temperature 97.5. HEENT: Examination unremarkable. Conjunctivae pink sclerae anicteric. Oral cavity no lesions. CHEST: Clear to auscultation. HEART: Regular rate and rhythm. ABDOMEN: Soft. Bowel sounds are positive. No organomegaly. EXTREMITIES: No pedal edema. SKIN: No rashes. NEUROLOGIC: Alert and oriented x3. No focal deficits. LABS: WBC 4.7, hemoglobin 11.5, platelets are normal. Basic metabolic panel is within normal limits. IMPRESSION: Acute diarrhea for the last 4 to 5 days duration with blood and mucus in the stool for the last 24 hours, which now has subsided. He did not have a bowel movement for the last 20 hours. Hemoglobin stable at 11.5 g/dL. Most likely we are dealing with an infectious etiology. C diff toxin was negative. Possibility of antibiotic-associated diarrhea also needs to be considered. RECOMMENDATIONS: 1. Await stool cultures. 2. Advance diet as tolerated. 3. If the bleeding is resolved and there are no further symptoms, he can be discharged home today with outpatient follow within a week, at which time we will plan an outpatient colonoscopy. However, if he continues to have more bleeding today, we will consider further workup while in the hospital. Thank you for this consultation. MMODL / IJN: [id number] /
[2018-01-01 11:59] LABS: Glucose,Whole Blood 220 mg/dL (75-99)
[2018-01-01 15:54] VITALS: BP 114/78; PULSE 70; TEMP 98.5
[2018-01-01 16:41] LABS: Glucose,Whole Blood 173 mg/dL (75-99)
--- NOTE | 2018-01-01 20:02 | P.PN ---
Subjective Progress Note Date: 01/01/18 Principal diagnosis: GI bleed This is a 62-year-old male was recently hospitalized after he was trimming the third and fourth toes on his left foot and he was using cuticle scissors to cut a hard callus at the end of the toes. He states it was a little bit of bleeding at the site at that time. He applied black drawing salve and applying Band-Aids. He has done this before and has not had any problems at this time his left foot started to swell. He also applied a salve on calluses on the second and third toes and they ended up splitting wide open. He states he has not had any pain with this, no fever or chills. He states he power walks 2 miles every day recently he only exercised 4 times and he still did not have any pain to his foot. Patient also applies Nonyx Nail gel to his toes to treat fungus and has been doing this since June 2016. He states since he started using that he has felt a tightness in the bottom of his foot. Patient takes multiple supplements and vitamins and follows with the chiropractor. Patient came into [facility] emergency center was found to have a normal white count of blood sugar was 404 and hemoglobin A1c 13.3. Patient was newly diagnosed with diabetes. Foot x-ray showed no acute bony abnormality with degenerative hypertrophic changes. Left leg was negative for DVT. MRI did not reveal osteomyelitis and he was discharged on oral antibiotics. Just before discharge he developed diarrhea which responded to imodium. Since arriving home continued with some diarrhea but on the day around his visit to the ER he had at least 10 high volme loose stools with some blood becoming evident and became dizzy and lightheaded and as noted presented to the ER. With hydration feels much better but still some blood in stool today. Denies fever, chills or abdominal pain. the toe ulcers are improving and blood glucose is improving. 01/01/2018 patient feeling considerably better. Last bowel movement was yesterday 11am. He's having no abdominal pain. Has had no blood per rectum. The foot ulceration is without discomfort and is improving. Objective - Vital Signs Vital signs: Vital Signs Temp 98.5 F 01/01/18 15:50 Pulse 70 01/01/18 15:50 Resp 18 01/01/18 15:50 BP 114/78 01/01/18 15:50 Pulse Ox 98 01/01/18 15:50 Intake & Output 01/01/18 01/01/18 01/02/18 06:59 18:59 06:59 Intake Total 1160 Output Total 1 Balance -1 1160 Weight 81.9 kg Intake: Oral 1160 Output: Urine 1 Other: Voiding Method Toilet # Voids 1 - Exam Gen: This is a 62-year-old male patient. Ambulating when observer arrived. HEENT: Head is atraumatic, normocephalic. Pupils equal, round. Sclerae is anicteric. Conjunctiva pink. Mucous members of the mouth are moist. No thrush noted. NECK: Supple. No JVD. No lymphadenopathy. No thyromegaly. LUNGS: A few expiratory wheezes. No intercostal retractions. HEART: Regular rate and rhythm. No murmur. ABDOMEN: Soft. Bowel sounds are present. No masses. No tenderness. No guarding or rebound EXTREMITIES: Mild edema to the left foot with erythema on the dorsal surface. There are ulcers to the dorsal surface of the third and fourth toes distally. No drainage. Onychomycosis noted the bilateral toes. Dorsalis pedis is +2 bilaterally. NEUROLOGICAL: Patient is awake, alert and oriented x3. - Labs CBC & Chem 7: 01/01/18 06:20 12/31/17 06:09 Labs: Abnormal Lab Results - Last 24 Hours (Table) 12/31/17 01/01/18 01/01/18 Range/Units 20:53 06:20 06:45 RBC 3.88 L (4.30-5.90) m/uL Hgb 11.5 L (13.0-17.5) gm/dL Hct 34.4 L (39.0-53.0) % POC Glucose (mg/dL) 195 H 221 H (75-99) mg/dL 01/01/18 01/01/18 Range/Units 11:57 16:38 RBC (4.30-5.90) m/uL Hgb (13.0-17.5) gm/dL Hct (39.0-53.0) % POC Glucose (mg/dL) 220 H 173 H (75-99) mg/dL Microbiology - Last 24 Hours (Table) 02/09/18 20:57 Blood Culture - Preliminary Blood No Growth after 24 hours Laboratory Results WBC 4.7 k/uL (3.8-10.6) 01/01/18 06:20 RBC 3.88 m/uL (4.30-5.90) L 01/01/18 06:20 Hgb 11.5 gm/dL (13.0-17.5) L 01/01/18 06:20 Hct 34.4 % (39.0-53.0) L 01/01/18 06:20 MCV 88.7 fL (80.0-100.0) 01/01/18 06:20 MCH 29.6 pg (25.0-35.0) 01/01/18 06:20 MCHC 33.3 g/dL (31.0-37.0) 01/01/18 06:20 RDW 12.3 % (11.5-15.5) 01/01/18 06:20 Plt Count 324 k/uL (150-450) 01/01/18 06:20 Neutrophils % 57 % 01/01/18 06:20 Lymphocytes % 27 % 01/01/18 06:20 Monocytes % 7 % 01/01/18 06:20 Eosinophils % 6 % 01/01/18 06:20 Basophils % 1 % 01/01/18 06:20 Neutrophils # 2.7 k/uL (1.3-7.7) 01/01/18 06:20 Lymphocytes # 1.3 k/uL (1.0-4.8) 01/01/18 06:20 Monocytes # 0.3 k/uL (0-1.0) 01/01/18 06:20 Eosinophils # 0.3 k/uL (0-0.7) 01/01/18 06:20 Basophils # 0.0 k/uL (0-0.2) 01/01/18 06:20 APTT 21.9 sec (22.0-30.0) L 12/30/17 20:57 Sodium 135 mmol/L (137-145) L 12/31/17 06:09 Potassium 4.3 mmol/L (3.5-5.1) 12/31/17 06:09 Chloride 98 mmol/L (98-107) 12/31/17 06:09 Carbon Dioxide 29 mmol/L (22-30) 12/31/17 06:09 Anion Gap 8 mmol/L 12/31/17 06:09 BUN 32 mg/dL (9-20) H 12/31/17 06:09 Creatinine 0.88 mg/dL (0.66-1.25) 12/31/17 06:09 Est GFR (MDRD) Af Amer >60 (>60 ml/min/1.73 sqM) 12/31/17 06:09 Est GFR (MDRD) Non-Af >60 (>60 ml/min/1.73 sqM) 12/31/17 06:09 Glucose 236 mg/dL (74-99) H 12/31/17 06:09 POC Glucose (mg/dL) 173 mg/dL (75-99) H 01/01/18 16:38 POC Glu Leadership Development Manager ID Christina Rodriguez 01/01/18 16:38 Lactic Ac Sepsis Rflx Y 12/30/17 22:08 Plasma Lactic Acid Abel 1.9 mmol/L (0.7-2.0) 12/31/17 01:16 Calcium 9.3 mg/dL (8.4-10.2) 12/31/17 06:09 Total Bilirubin 0.7 mg/dL (0.2-1.3) 12/31/17 06:09 AST 16 U/L (17-59) L 12/31/17 06:09 ALT 31 U/L (21-72) 12/31/17 06:09 Alkaline Phosphatase 47 U/L (38-126) 12/31/17 06:09 Total Creatine Kinase 192 U/L (55-170) H 12/30/17 20:57 CK-MB (CK-2) 3.8 ng/mL (0.0-2.4) H* 12/30/17 20:57 CK-MB (CK-2) Rel Index 2.0 12/30/17 20:57 Troponin I <0.012 ng/mL (0.000-0.034) 12/30/17 20:57 Total Protein 5.2 g/dL (6.3-8.2) L 12/31/17 06:09 Albumin 3.0 g/dL (3.5-5.0) L 12/31/17 06:09 Stool Occult Blood Positive (Negative) 12/30/17 20:57 C. difficile (EIA) Intrp Negative (Negative) 12/30/17 21:08 Blood Type A Positive 12/30/17 20:57 Blood Type Confirm A Positive 12/30/17 21:49 Blood Type Recheck CABO Indicated 12/30/17 20:57 Antibody Screen NEGATIVE 12/30/17 20:57 Spec Expiration Date 01/02/2018 - 2357 12/30/17 20:57 Microbiology 12/30/17 20:57 Blood Blood Culture - Preliminary No Growth after 24 hours 12/30/17 21:08 Stool Stool Culture - Preliminary Assessment and Plan (1) GI bleed Narrative/Plan: 62-year-old male presents to Hospital shortly after recent hospitalization he was had evidence new onset diabetes mellitus type 2 and developed ulcerations to second third and fourth toes of his left foot. He has taken cellulitis at that time. He has had marked improvement of his glucose control and was feeling considerably better until the sudden onset of diarrhea. Using some loose stools while hospitalized but Imodium was allowing good control of his diarrhea. However is noted on the day of admission he at least 10 stools. He felt dizzy and lightheaded and presented to the emergency center. Relative hypotension. Fluid resuscitation he is done considerably better. There was a minimal drop of his hemoglobin and he has been seen by gastroenterology. He is doing considerably better after hydration. Concern for antibiotic-induced colitis and C. diff was requested and is come back as negative. The likely is still having antibiotic associated diarrhea. His ulcerations are doing considerably better antibiotic therapy is discontinued. Some Questran can be added to his current regimen to try to improve his stool bulk and reduce any difficulties. Expansion be utilized for wiping the rectal area to improve irritation from his multiple loose stools. GI will follow and likely will plan outpatient endoscopy. Local wound care will continue for the diabetic foot ulcerations that are showing improvement with his glucose control improvement 01/01/2018 patient is much improved. He's had no more blood per rectum. He has no abdominal pain. Diarrhea is completely resolved. Toe wounds are looking well with topical therapy with medical honey. That will continue. He will be discharged home with local wound care to the toes. He will report back if he is having any difficulties with recurrence of his diarrhea. It appears that it the antibiotic therapy was driving the diarrhea and with its discontinuation is doing well. The infection to the foot is generally resolved and needs no further antibiotic therapy. We utilize topical therapy only. Status: Acute Code(s): K92.2 - GASTROINTESTINAL HEMORRHAGE, UNSPECIFIED SNOMED Code(s): 42897738 (2) Hypotension Status: Acute Code(s): I95.9 - HYPOTENSION, UNSPECIFIED SNOMED Code(s): 21506896 (3) New onset type 2 diabetes mellitus Status: Acute Code(s): E11.9 - TYPE 2 DIABETES MELLITUS WITHOUT COMPLICATIONS SNOMED Code(s): 48300847 (4) Dehydration Status: Acute Code(s): E86.0 - DEHYDRATION SNOMED Code(s): 09706994
--- NOTE | 2018-01-01 22:39 | DS ---
DISCHARGE SUMMARY DATE OF ADMISSION: 12/30/17. DATE OF DISCHARGE: January 01, 2018. FINAL DIAGNOSES: 1. Acute lower gastrointestinal bleed, could be from antibiotic associated diarrhea. 2. Antibiotic associated diarrhea from Augmentin. 3. Diabetes mellitus, type 2 on oral hypoglycemics. 4. Hyperlipidemia. 5. Relative hypertension from fluid volume loss. HOSPITAL COURSE: This pleasant gentleman was just admitted to the hospital with a wound on the left foot, newly diagnosed, uncontrolled diabetic, discharged on Augmentin, presented with diarrhea, low blood pressure, blood in the stools. The patient's wound had healed rather well quickly with Medihoney. Hence antibiotics were discontinued. Seen by Dr. Encinas, seen by Dr. Jai Kearney from Gastroenterology, she will see the patient as an outpatient. PHYSICAL EXAMINATION: On exam abdomen soft, nontender. Left toe wounds have healed rather well. The patient was told to hold off his lisinopril hydrochlorothiazide because of blood pressure is running on the lower side initially, now blood pressures come up to 120. Did tell him to resume lisinopril hydrochlorothiazide to 1 tab a day and keep his appointments as discharge before. DISCHARGE MEDICATIONS: 1. Aspirin 81 mg a day. 2. Lipitor 20 mg a day. 3. Glucophage 1000 mg b.i.d. 4. Vitamin C 1000 mg p.o. daily. 5. Fish oil 1200 mg p.o. b.i.d. 6. Zestoretic 09/01.5, to be resumed 1 tablet a day when the blood pressure goes to 130/80. 7. Imodium p.r.n. 8. Medihoney to continue. FOLLOWUP: Follow up with Dr. Gant in 3 days, Dr. Encinas in 1 week, Dr. Jai Kearney in 1 week. CBC in 1 week. Diabetic diet. MMODL / IJN: [id number] /
== END 2018-01-01 18:23 | disposition home or self-care (01) ==
LOC: EC 20:30 → 4MS4W 23:03 → 6SEL 23:31
PROVIDERS: ADMIT Hospitalist; ATTEND Hospitalist
DX: K92.2 Gastrointestinal hemorrhage, unspecified (principal); K52.1 Toxic gastroenteritis and colitis; E11.42 Type 2 diabetes mellitus with diabetic polyneuropathy; L97.529 Non-pressure chronic ulcer of other part of left foot with unspecified severity; E11.621 Type 2 diabetes mellitus with foot ulcer; E86.0 Dehydration; I95.9 Hypotension, unspecified; E78.5 Hyperlipidemia, unspecified; I10 Essential (primary) hypertension; E86.9 Volume depletion, unspecified; T36.0X5A Adverse effect of penicillins, initial encounter; R61 Generalized hyperhidrosis; Z79.82 Long term (current) use of aspirin; Z79.899 Other long term (current) drug therapy; Z79.84 Long term (current) use of oral hypoglycemic drugs; Z82.49 Family history of ischemic heart disease and other diseases of the circulatory system; Z80.3 Family history of malignant neoplasm of breast
CPT/HCPCS: 36415; 80053; 82272; 82550; 82553; 83605; 84484; 85025; 85730; 86850; 86900; 86901; 87040; 87045; 87046; 87324; 93005; 96361; 96365; 96366; 96375; 99285

== ENCOUNTER 2018-02-21 20:51 | Emergency (ER) | payer OTHER ==
[2018-02-21 21:05] VITALS: RESP 18
--- NOTE | 2018-02-21 21:32 | ED ---
Skin/Abscess/FB HPI - General Chief complaint: Skin/Abscess/Foreign Body Stated complaint: seny by ME Diabetic Time Seen by Provider: 02/21/18 21:09 Source: patient, RN notes reviewed Mode of arrival: ambulatory Limitations: no limitations - History of Present Illness Initial comments: This is a 63-year-old male, recently diagnosed with diabetes, who presents to the emergency department with chief complaint of left foot wound. Patient states that he developed an open wound to the fourth toe on his left foot approximately one week ago. This wound had been present another time in the past but healed. Patient states that he was prescribed antibiotics but did not finish the entire course. He states he has been applying a honey salve to the wound. He states that he presented to [facility] today because he noticed swelling of his left foot. Med [facility] recommended the patient presents to the emergency department for further evaluation. Denies fever, chills, chest pain, shortness of breath, abdominal pain, nausea or vomiting, constipation or diarrhea, dysuria or hematuria, numbness or tingling, headache or vision changes. Patient denies any pain to the wound. Denies any drainage. Patient states that he wants to be treated outpatient and refuses to be admitted if it comes to that. - Related Data Home Medications Medication Instructions Recorded Confirmed Aspirin 81 mg PO DAILY 12/25/17 02/21/18 Ascorbic Acid [Vitamin C] 6,000 mg PO DAILY 12/30/17 02/21/18 Fish Oil/Dha/Epa [Fish Oil 1,200 1 cap PO BID 12/30/17 02/21/18 mg Fish Oil] Saw [place] 450 Mg 900 mg PO BID 12/30/17 02/21/18 Cholecalciferol [Vitamin D3] 5,000 unit PO DAILY 02/21/18 02/21/18 L.acidoph,Paracasei, B.lactis 1 cap PO DAILY 02/21/18 02/21/18 [Probiotic] Placenta Compositum 1 tab PO DAILY 02/21/18 02/21/18 Rosuvastatin Calcium [Crestor] 5 mg PO DAILY 02/21/18 02/21/18 metFORMIN HCL 1,000 mg PO BID 02/21/18 02/21/18 Previous Rx's Medication Instructions Recorded Cephalexin [Keflex] 500 mg PO Q12HR #28 cap 02/21/18 Sulfamethox-Tmp 800-160Mg [Bactrim 1 tab PO Q12HR #28 tab 02/21/18 DS 800-160 mg] Allergies Allergy/AdvReac Type Severity Reaction Status Date / Time No Known Allergies Allergy Verified 02/21/18 20:59 Review of Systems ROS Statement: Those systems with pertinent positive or pertinent negative responses have been documented in the HPI. ROS Other: All systems not noted in ROS Statement are negative. Past Medical History Past Medical History: No Reported History, Diabetes Mellitus, Hypertension Additional Past Medical History / Comment(s): 2017 presented in ER with high blood pressure, no medications needed History of Any Multi-Drug Resistant Organisms: None Reported Past Surgical History: No Surgical Hx Reported Past Psychological History: No Psychological Hx Reported Smoking Status: Never smoker Past Alcohol Use History: None Reported, Rare Past Drug Use History: None Reported - Past Family History Mother Family Medical History: Cancer, Diabetes Mellitus, Hypertension, Liver Disease, Renal Disease Additional Family Medical History / Comment(s): breast cancer history Father Family Medical History: Cancer, Chest Pain / Angina, Hypertension, Myocardial Infarction (NH), Osteoarthritis (OA) General Exam - General Exam Comments Initial Comments: General: Awake and alert, well-developed; in no apparent distress. Does not appear acutely ill. HEENT: Head atraumatic, normocephalic. Pupils are equal, round and reactive to light. Extraocular movements intact. Oropharynx moist without erythema or exudate. Neck: Supple. Normal ROM. Cardiovascular: Regular rate and rhythm. No murmurs, rubs or gallops. Chest symmetrical. Respiratory: Lungs clear to auscultation bilaterally. No wheezes, rales or rhonchi. Normal respiratory effort with no use of accessory muscles. Musculoskeletal: Normal ROM, no tenderness bilateral upper and lower extremities. Ambulating normally. Skin: [place], warm and dry. There is an approximately 1.0 cm in diameter erythematous ulceration dorsal aspect left fourth toe. Surrounding area is erythematous and mildly swollen. Neurological: Alert and oriented x3. CN II-XII grossly intact. Speech is fluent and answers are appropriate. No focal neuro deficits. Psychiatric: Normal mood and affect. No overt signs of depression or anxiety noted. Limitations: no limitations Course Vital Signs 02/21/18 20:59 Temperature 97.7 F Pulse Rate 94 Respiratory 18 Rate Blood Pressure 134/72 O2 Sat by Pulse 97 Oximetry Medical Decision Making - Medical Decision Making This is a 63-year-old male who presents to the emergency department with chief complaint of left fourth toe wound. Patient was recently diagnosed with diabetes. Wound has been present for approximately one week. Wound is approximately 1.0 cm in diameter, erythematous and superficial. No pain. Mild swelling and erythema noted. CBC and CMP are unremarkable. X-ray reveals no evidence for osteomyelitis. Vital signs are stable and patient is in no acute distress. He will be discharged home with prescriptions for Bactrim and Keflex. Strongly advised finishing the full course of antibiotics. Return parameters were discussed. Patient is in agreement with plan and voices understanding. All questions were answered. - Lab Data Result diagrams: 02/21/18 21:25 02/21/18 21:25 Lab Results 02/21/18 02/21/18 Range/Units 21:25 21:25 WBC 6.9 (3.8-10.6) k/uL RBC 4.33 (4.30-5.90) m/uL Hgb 12.7 L (13.0-17.5) gm/dL Hct 37.2 L (39.0-53.0) % MCV 85.9 (80.0-100.0) fL MCH 29.3 (25.0-35.0) pg MCHC 34.1 (31.0-37.0) g/dL RDW 12.9 (11.5-15.5) % Plt Count 286 (150-450) k/uL Neutrophils % 71 % Lymphocytes % 19 % Monocytes % 7 % Eosinophils % 2 % Basophils % 0 % Neutrophils # 4.9 (1.3-7.7) k/uL Lymphocytes # 1.3 (1.0-4.8) k/uL Monocytes # 0.5 (0-1.0) k/uL Eosinophils # 0.2 (0-0.7) k/uL Basophils # 0.0 (0-0.2) k/uL Sodium 139 (137-145) mmol/L Potassium 3.9 (3.5-5.1) mmol/L Chloride 100 (98-107) mmol/L Carbon Dioxide 29 (22-30) mmol/L Anion Gap 10 mmol/L BUN 19 (9-20) mg/dL Creatinine 0.71 (0.66-1.25) mg/dL Est GFR (CKD-EPI)AfAm >90 (>60 ml/min/1.73 sqM) Est GFR (CKD-EPI)NonAf >90 (>60 ml/min/1.73 sqM) Glucose 233 H (74-99) mg/dL Calcium 9.5 (8.4-10.2) mg/dL Total Bilirubin 0.2 (0.2-1.3) mg/dL AST 24 (17-59) U/L ALT 34 (21-72) U/L Alkaline Phosphatase 44 (38-126) U/L Total Protein 6.2 L (6.3-8.2) g/dL Albumin 3.9 (3.5-5.0) g/dL Disposition Clinical Impression: Diabetic foot ulcer Disposition: HOME SELF-CARE Condition: Good Instructions: Foot Care for People with Diabetes (ED), Diabetic Foot Ulcers (ED ) Additional Instructions: Please take medications as prescribed. Please follow up with primary care provider within 1-2 days. Return to emergency department if symptoms should worsen or any concerns arise. Prescriptions: Cephalexin [Keflex] 500 mg PO Q12HR #28 cap Sulfamethox-Tmp 800-160Mg [Bactrim DS 800-160 mg] 1 tab PO Q12HR #28 tab Referrals: None,Stated [Primary Care Provider] - 1-2 days Time of Disposition: 22:32
[2018-02-21 21:52] LABS: Basophils % (A) 0 %; Eosinophils # (A) 0.2 k/uL (0-0.7); Eosinophils % (A) 2 %; HCT 37.2 % (39.0-53.0); HGB 12.7 gm/dL (13.0-17.5); Lymphocytes # (A) 1.3 k/uL (1.0-4.8); Lymphocytes % (A) 19 %; MCH 29.3 pg (25.0-35.0); MCHC 34.1 g/dL (31.0-37.0); MCV 85.9 fL (80.0-100.0); Mean Platelet Volume 7.4; Monocytes # (A) 0.5 k/uL (0-1.0); Monocytes % (A) 7 %; Neutrophils # (A) 4.9 k/uL (1.3-7.7); Neutrophils % (A) 71 %; Platelet Count 286 k/uL (150-450); RBC 4.33 m/uL (4.30-5.90); RDW 12.9 % (11.5-15.5); WBC 6.9 k/uL (3.8-10.6)
[2018-02-21 22:04] LABS: ALT 34 U/L (21-72); AST 24 U/L (17-59); Albumin 3.9 g/dL (3.5-5.0); Alkaline Phosphatase 44 U/L (38-126); Anion Gap 10 mmol/L; Blood Urea Nitrogen 19 mg/dL (9-20); Calcium 9.5 mg/dL (8.4-10.2); Carbon Dioxide 29 mmol/L (22-30); Chloride 100 mmol/L (98-107); Glucose 233 mg/dL (74-99); Potassium 3.9 mmol/L (3.5-5.1); Sodium 139 mmol/L (137-145); Total Bilirubin 0.2 mg/dL (0.2-1.3); Total Protein 6.2 g/dL (6.3-8.2)
--- NOTE | 2018-02-21 22:16 | XR ---
EXAMINATION TYPE: XR foot limited LT DATE OF EXAM: 02/21/2018 CLINICAL HISTORY: Fourth digit foot ulcer. TECHNIQUE: Frontal and lateral images of the left foot are obtained. COMPARISON: MRI of the left foot dated 12/28/2017 FINDINGS: There is no acute fracture/dislocation evident in the left foot. Phalanges are suboptimall y evaluated on the lateral image is secondary to flexion deformities and also suboptimally evaluated on the frontal image secondary to flexion deformities. No cortical erosion is seen on the frontal romulo ge. No discrete periosteal reaction is noted. Small Achilles and plantar enthesophytes are seen. IMPRESSION: Suboptimal evaluation of the distal phalanges secondary to flexion deformities. No gross evidence of cortical erosion or periosteal reaction to indicate osteomyelitis. White blood cell nucle ar medicine scan could be performed if there is further clinical concern.
[2018-02-21 22:44] VITALS: BP 132/79; PULSE 85; TEMP 98.8
== END 2018-02-21 22:55 | disposition home or self-care (01) ==
LOC: EC 20:51
DX: E11.621 Type 2 diabetes mellitus with foot ulcer (principal); L97.529 Non-pressure chronic ulcer of other part of left foot with unspecified severity; I10 Essential (primary) hypertension; Z79.82 Long term (current) use of aspirin; Z79.84 Long term (current) use of oral hypoglycemic drugs; Z79.899 Other long term (current) drug therapy
CPT/HCPCS: 36415; 80053; 85025; 99283

== ENCOUNTER → 2018-08-29 | Outpatient (CLI) | payer OTHER | END | disposition home or self-care (01) | LOC: LABWHC1 09:55 | PROVIDERS: ATTEND Orthopaedic Surgery | DX: E55.9 Vitamin D deficiency, unspecified (principal) | CPT/HCPCS: 36415; 82306 ==

== ENCOUNTER → 2019-08-02 | Outpatient (CLI) | payer OTHER ==
--- NOTE | 2019-08-02 11:29 | US ---
EXAMINATION TYPE: US venous doppler duplex LE DATE OF EXAM: 08/02/2019 9:10 AM COMPARISON: NONE CLINICAL HISTORY: R60.0 Edema. Edema left foot SIDE PERFORMED: bilateral TECHNIQUE: The lower extremity deep venous system is examined utilizing real time linear array sonog kehinde with graded compression, doppler sonography and color-flow sonography. VESSELS IMAGED: External Iliac Vein (EIV) Common Femoral Vein Deep Femoral Vein Greater Saphenous Vein * Femoral Vein Popliteal Vein Small Saphenous Vein * Proximal Calf Veins (* superficial vessels) There is normal flow, compressibility, vascular waveforms. Right Leg: No evidence of DVT Left Leg: No evidence of DVT IMPRESSION: No evident deep venous thrombosis at or above the knees.
== END | disposition home or self-care (01) ==
LOC: RADUSMAIN 08:33
PROVIDERS: ATTEND Family Medicine
DX: R60.0 Localized edema (principal)
CPT/HCPCS: 93970

== ENCOUNTER → 2020-10-01 | Outpatient (CLI) | payer OTHER ==
[2020-10-01 09:27] LABS: Basophils % (A) 1 %; Eosinophils # (A) 0.2 k/uL (0-0.7); Eosinophils % (A) 5 %; HCT 41.1 % (39.0-53.0); HGB 13.9 gm/dL (13.0-17.5); Lymphocytes # (A) 1.1 k/uL (1.0-4.8); Lymphocytes % (A) 27 %; MCH 30.2 pg (25.0-35.0); MCHC 33.7 g/dL (31.0-37.0); MCV 89.7 fL (80.0-100.0); Mean Platelet Volume 6.9; Monocytes # (A) 0.3 k/uL (0-1.0); Monocytes % (A) 8 %; Neutrophils # (A) 2.3 k/uL (1.3-7.7); Neutrophils % (A) 57 %; Platelet Count 284 k/uL (150-450); RBC 4.58 m/uL (4.30-5.90); RDW 12.9 % (11.5-15.5); WBC 4.1 k/uL (3.8-10.6)
[2020-10-01 15:10] LABS: African American GFR (CKD) 91.8 (60.0-200.0); Albumin 4.3 g/dL (3.80-4.90); Albumin/Globulin Ratio 2.05 (1.60-3.17); Anion Gap 6.3 mmol/L (4.00-12.00); Calcium 9.8 mg/dL (8.7-10.3); Carbon Dioxide 27.7 mmol/L (21.6-31.8); Chol/HDL Ratio 3.45; Globulin 2.1 g/dL (1.6-3.3); LDL Cholesterol,Calculated 85.6 mg/dL (0.0-131.0); Non-African American GFR(CKD) 79.2 (60.0-200.0); Potassium 4.4 mmol/L (3.5-5.5); Total Bilirubin 0.5 mg/dL (0.2-1.2); Total Protein 6.4 g/dL (6.2-8.2); VLDL Calculation 17.4 mg/dL (5.00-40.00)
[2020-10-02 16:34] LABS: Hemoglobin A1C 7.9 % (4.0-6.0)
== END | disposition home or self-care (01) ==
LOC: LABWHC1 08:15
PROVIDERS: ATTEND Family Medicine
DX: I10 Essential (primary) hypertension (principal)
CPT/HCPCS: 36415; 80053; 80061; 83036; 85025

== ENCOUNTER → 2021-11-24 | Outpatient (CLI) | payer MEDICARE, OTHER ==
[~2021-11-24] MED LIST: BAMLANIVIMAB (EUA) 700 MG, ETESEVIMAB (EUA) 1,400 MG in SODIUM CHLORIDE 0.9% 100 ML IVPB ONE; SODIUM CHLORIDE 0.9% 50 ML IVPB ONE; SODIUM CHLORIDE 0.9% 500 ML 500 ML in EMPTY BAG 1 BAG IV PRN
[2021-11-24 13:39] VITALS: RESP 18; TEMP 96.8
[2021-11-24 14:45] VITALS: BP 137/84; PULSE 100
== END ==
LOC: PROCWHC3 13:04
PROVIDERS: ATTEND Internal Medicine
DX: U07.1 COVID-19 (principal); E11.9 Type 2 diabetes mellitus without complications
CPT/HCPCS: 96360; J3490; M0245

== ENCOUNTER → 2023-07-16 | Outpatient (CLI) | payer MEDICARE ==
--- NOTE | 2023-07-16 18:15 | XR ---
EXAMINATION TYPE: XR hand complete RT DATE OF EXAM: 07/16/2023 COMPARISON: NONE HISTORY: 68-year-old male M79.641, right hand pain TECHNIQUE: 3 views FINDINGS: Mild degenerative spurring second and third MCP joints. Mild degenerative spurring first IP joint. Th ere appears to be significant joint space narrowing at the radiolunate joint space. The appearance of a radiodense foreign body measuring 5 mm in the ulnar-sided carpal soft tissues. This should be luis elated clinically. No acute fracture, subluxation, or dislocation. IMPRESSION: 1. There seems to be significant degenerative joint space narrowing at the radiolunate joint. 2. Scattered mild osteoarthritic spurring changes at the first IP joint as well as the second and thi rd MCP joints. 3. Query 5 mm foreign body material in the ulnar carpal soft tissues.
== END | disposition home or self-care (01) ==
LOC: RADXRMAIN 11:55
PROVIDERS: ATTEND Internal Medicine
DX: M18.11 Unilateral primary osteoarthritis of first carpometacarpal joint, right hand (principal); M79.89 Other specified soft tissue disorders

== ENCOUNTER → 2024-09-11 | Outpatient (CLI) | payer MEDICARE ==
--- NOTE | 2024-09-11 10:08 | CT ---
EXAMINATION TYPE: CT brain wo con DATE OF EXAM: 09/11/2024 COMPARISON: None HISTORY: dizziness CT DLP: [address] of the brain was performed. The ventricles, basal cisterns and sulci overlying the cerebral convexities demonstrate mild enlargem ent. There is no evidence for intracranial hemorrhage or sulcal effacement. There is decreased attenuation about the periventricular white matter and deep white matter of both c erebral hemispheres, compatible with chronic small vessel ischemia. Differential diagnosis does inclu de demyelination. No mass effects are seen.No midline shift. Osseous calvarium is intact. If symptoms persist consider MRI. IMPRESSION: 1. Age related atrophic and chronic small vessel ischemic change without acute intracranial process s een at this time. [facility], , 09/11/2024 10:05 AM
== END | disposition home or self-care (01) ==
LOC: RADCTMAIN 08:54
PROVIDERS: ATTEND Internal Medicine
CPT/HCPCS: 70450

== ENCOUNTER → 2025-04-05 | Outpatient (CLI) | payer MEDICARE ==
--- NOTE | 2025-04-07 09:37 | XR ---
Chest, 2 view. CLINICAL INDICATION: Male, 70 years old with history of R05.9 Cough COMPARISON: TECHNIQUE: PA and lateral views the chest are obtained. FINDINGS: The lungs are clear and there is no consolidative or interstitial opacity. There is no pleural effusion or pneumothorax. The heart, pulmonary vasculature, mediastinum and troy appear normal. The osseous structures are intact. There is a large hiatal hernia. IMPRESSION: 1. No acute cardiopulmonary disease. 2. Large hiatal hernia. [facility], , 04/07/2025 9:35 AM
== END | disposition home or self-care (01) ==
LOC: RADXRMAIN 15:23
PROVIDERS: ATTEND Internal Medicine
DX: S90.129A Contusion of unspecified lesser toe(s) without damage to nail, initial encounter (principal); R05.9 Cough, unspecified; K44.9 Diaphragmatic hernia without obstruction or gangrene
CPT/HCPCS: 71046

== ENCOUNTER → 2025-04-09 | Outpatient (CLI) | payer MEDICARE ==
[2025-04-09 16:18] LABS: ALT 28 U/L (10-49); AST 25 U/L (14-35); Albumin 3.9 g/dL (3.8-4.9); Albumin/Globulin Ratio 1.62 Ratio (1.60-3.17); Alkaline Phosphatase 42 U/L (41-126); BUN/Creat Ratio 20.44 Ratio (12.00-20.00); Blood Urea Nitrogen 18.4 mg/dL (9.0-27.0); Calcium 9.3 mg/dL (8.7-10.3); Carbon Dioxide 26.2 mmol/L (21.6-31.8); Chloride 104 mmol/L (96-109); Chol/HDL Ratio 2.78 Ratio; Globulin 2.4 g/dL (1.6-3.3); Glucose 135 mg/dL (70-110); LDL Cholesterol,Calculated 63.1 mg/dL (0.0-131.0); Magnesium 1.8 mg/dL (1.5-2.4); Potassium 4.4 mmol/L (3.5-5.5); Prostate Specific Antigen 1.82 ng/mL (0.000-4.500); Sodium 140 mmol/L (135-145); Total Bilirubin 0.3 mg/dL (0.3-1.2); Total Protein 6.3 g/dL (6.2-8.2); VLDL Calculation 16.32 mg/dL (5.00-40.00)
[2025-04-09 16:19] LABS: Basophils # (A) 0.03 X 10*3/uL (0.00-0.10); Basophils % (A) 0.6 %; Eosinophils # (A) 0.25 X 10*3/uL (0.04-0.35); Eosinophils % (A) 5.2 %; HCT 42.1 % (39.6-50.0); HGB 13.6 g/dL (13.0-17.0); Lymphocytes # (A) 1.14 X 10*3/uL (0.90-5.00); Lymphocytes % (A) 23.7 %; MCH 30.5 pg (27.0-32.0); MCHC 32.3 g/dL (32.0-37.0); MCV 94.4 FL (80.0-97.0); Mean Platelet Volume 9.6 FL (9.5-12.2); Monocytes # (A) 0.58 X 10*3/uL (0.20-1.00); NRBC Per 100 WBC 0 X 10*3/uL (0.00-0.01); Neutrophils # (A) 2.81 X 10*3/uL (1.80-7.70); Neutrophils % (A) 58.3 %; Platelet Count 280 X 10*3/uL (140-440); RBC 4.46 X 10*6/uL (4.40-5.60); RDW 13.5 % (11.5-14.5); WBC 4.82 X 10*3/uL (4.50-10.00)
== END | disposition home or self-care (01) ==
LOC: LABWHC1 09:39
PROVIDERS: ATTEND Internal Medicine
DX: E11.621 Type 2 diabetes mellitus with foot ulcer (principal); M85.80 Other specified disorders of bone density and structure, unspecified site; N40.0 Benign prostatic hyperplasia without lower urinary tract symptoms; L97.509 Non-pressure chronic ulcer of other part of unspecified foot with unspecified severity
CPT/HCPCS: 36415; 80053; 80061; 82306; 83036; 83735; 84153; 84443; 85025